=== PATIENT | female | born 1965 | race Hispanic/Latino ===

== ENCOUNTER 2020-12-14 06:48 | Day surgery (SDC) | payer OTHER ==
[~2020-12-14] VITALS: Ht 152.4 cm; Wt 64.1 kg
[~2020-12-14 06:48] MED LIST: ARTHRITIS PAIN100 GM TP; ATIVAN0.5 MG PO; B COMPLEX1 EACH PO; BUPROPION HCL150 M2 PO; MELATONIN1 MG PO; NASONEX17 GM NAS; NORVASC5 MG PO; PAROXETINE HCL20 MG PO; PULMICORT FLEX90 MCG INH; QUINAPRIL-HCTZ1 EAC2 PO; SIMVASTATIN20 MG PO; VALACYCLOVIR1000 MG PO; VENTOLIN HFA18 GM; ZYRTEC10 M3
--- NOTE | 2020-12-14 08:09 | NUR ---
12/14/20 0809 Hannah Bal 0803-PATIENT ARRIVED TO PACU ON 2L NC RR EVEN NONAROUSABLE TO VERBAL OR PAINFUL STIMULI. PATIENT LAYING LEFT LATERAL ABDOMEN SOFT. IVF INFUSING. CO2 LEVEL 35.
--- NOTE | 2020-12-14 09:36 | NUR ---
RETURNED TO DAY SURGERY TO SLEEP OFF MEDICATION
--- NOTE | 2020-12-15 06:46 | OR ---
[facility] [address], [place] [address] Signed DATE OF OPERATION: 12/14/2020 SURGEON: Maria De Jesus Kern MD PREOPERATIVE DIAGNOSES: 1. Screening. 2. Anogenital pruritus. 3. Hemorrhoid versus skin tag versus anal fissure. 4. Change in bowel habits after full hysterectomy in 2011. POSTOPERATIVE DIAGNOSES: 1. 4 mm polyp proximal right colon. 2. Minimal internal anal skin tags. PROCEDURE: Colonoscopy with hot biopsy. ESTIMATED BLOOD LOSS: None. INDICATIONS: Monica is a 55-year-old female, asked to see me for her initial colonoscopy. She has had many years ago she saw a stockroom inventory clerk. There was discussion about a skin tag versus a hemorrhoid. She is also concerned she may have had an anal fissure in the past. There was also discussion in the notes about anogenital pruritus for which she sees her host. She describes Preparation-H pads. Unfortunate that contains lidocaine which can lead to allergic dermatitis. She probably should discontinue that and switch over to something like a Balneol lotion, which contains mineral oil and lanolin. This is simple skin lotion for the anus and perineum. She also said after her open total hysterectomy in 2011, she has had a change in bowel habits with dry hard pellet-like stool. She told me to her knowledge no one in the family has a colon cancer or polyps including the first cousin. There is no inflammatory bowel disease in the family. She gave her recent stool study a month prior to the office visit, it was negative. In the office, I gave her a booklet on colonoscopy. We had discussed the test in detail. She understands there is risk including, but not limited to gas bloating, crampy abdominal pain, bleeding, perforation requiring surgery, and missed diagnosis. She also understands the need for IV conscious sedation. She had expressed understanding and wished to proceed. PROCEDURE NOTE: Electronically Signed By: MARIA DE JESUS KERN MD 12/15/20 0646 PATIENT NAME: HARLEEN GATES,MONICA HAWLEY OPERATIVE REPORT DATE OF : 63 REPORT #: [id number] PHYSICIAN: MARIA DE JESUS KERN MD PCP: EKATERINA ENGEL REPORT IS CONFIDENTIAL AND NOT TO BE RELEASED WITHOUT AUTHORIZATION [facility] [address], [place] [address] Signed Monica was taken into our endoscopy suite and placed in the left lateral decubitus position. She was given a total of 5 mg of Versed, 125 mcg of fentanyl to cover the case. A digital rectal exam was performed and this was unremarkable. She has good sphincter tone. No obvious anal sphincter. The adult colonoscope had been introduced and advanced around into the cecum under direct visualization of camera. It took a little extra sedation abdominal compression in order to advance the scope. Her prep was quite excellent. We could easily see the appendiceal orifice. We could also see the ileocecal valve. We took pictures throughout for photodocumentation. There may have been two polyps in her proximal right colon. The camera had turned around several times and we did find one polyp for sure and it was easily removed with a hot biopsy forceps. We never did see a 2nd polyp. It may be that they were the same, but it is not entirely clear. The scope was slowly withdrawn. The rest of the colon was completely unremarkable. There was no other polyps and no diverticulosis. The rectum was unremarkable. Upon retroflexion of scope, she does have a small internal anal skin tag. Really not much in the way of any hemorrhoids. After this, the gas was suctioned out and the colonoscope removed. Monica tolerated the procedure quite well. RECOMMENDATIONS: I will see Monica back in my office in 7 to 14 days to review her results. She might consider a followup colonoscopy in 12-18 months to make sure that proximal right colon is clear of all polyps. Maria De Jesus Kern MD ALB/MODL /[id number] cc: MD Ekaterina Villegas PA Copies: MARIA DE JESUS KERN MD Electronically Signed By: MARIA DE JESUS KERN MD 12/15/20 0646 PATIENT NAME: MONICA HUNG OPERATIVE REPORT DATE OF : 63 REPORT #: [id number] PHYSICIAN: MARIA DE JESUS KERN MD PCP: EKATERINA ENGEL REPORT IS CONFIDENTIAL AND NOT TO BE RELEASED WITHOUT AUTHORIZATION [facility] [address] [facility] [place], [place] [address] Signed EKATERINA ENGEL ~ Electronically Signed By: MARIA DE JESUS KERN MD 12/15/20 0646 PATIENT NAME: MONICA HUNG OPERATIVE REPORT DATE OF : 63 REPORT #: [id number] PHYSICIAN: MARIA DE JESUS KERN MD PCP: EKATERINA ENGEL REPORT IS CONFIDENTIAL AND NOT TO BE RELEASED WITHOUT AUTHORIZATION
--- NOTE | 2020-12-16 09:04 | PATH ---
[facility] [address] [place], [place] [address] Signed SPECIMEN(S): A ASCENDING/RIGHT PROXIMAL POLYP SPECIMEN SOURCE: A. ASCENDING/RIGHT PROXIMAL POLYP CLINICAL HISTORY: Screening colonoscopy. MICROSCOPIC DESCRIPTION: Histologic sections of all submitted blocks are examined by light microscopy. These findings, together with the gross examination, support the pathologic diagnosis. FINAL PATHOLOGIC DIAGNOSIS: Colon, proximal ascending/right, polyp, polypectomy: - Colonic mucosa with no histopathologic abnormality. - Negative for dysplasia or malignancy. COMMENT: Multiple additional deeper levels were examined. NAL:cml:C2NR GROSS DESCRIPTION: The specimen, labeled "AV, 1," and designated on the requisition "proximal ascending/right polypectomy," is received in formalin and consists of one fragment of pink-herman tissue (0.2 cm in greatest dimension). The specimen is submitted entirely in cassette (A1). AC (under the direct supervision of a pathologist The Gross Description was prepared using a voice recognition system. The report was reviewed for accuracy; however, sound-alike word errors, addition and/or deletions may occur. If there is any question about this report, please contact Client Services. PERFORMING LABORATORY: The technical component was performed by [facility], [address] [place] [id number] (Property Management Coordinator: Berenice Francis MD; CLIA# [id number]). [facility], [address] [address] (CLIA# [id number]). Diagnostician: Jessica Hermosillo MD Pathologist PATIENT NAME: ASHLY HUNG PATHOLOGY DATE OF : 63 REPORT #: [id number] PHYSICIAN: [facility] PCP: SANCHO ENGEL REPORT IS CONFIDENTIAL AND NOT TO BE RELEASED WITHOUT AUTHORIZATION [address] [address] Signed Electronically Signed 12/16/2020 Copies: ~ PATIENT NAME: ASHLY HUNG PATHOLOGY DATE OF : 63 REPORT #: [id number] PHYSICIAN: [facility] PATH[facility] PCP: SANCHO ENGEL REPORT IS CONFIDENTIAL AND NOT TO BE RELEASED WITHOUT AUTHORIZATION
== END 2020-12-14 10:25 | disposition home or self-care (01) ==
LOC: OPS 06:48
PROVIDERS: ATTEND Colon & Rectal Surgery
PROC: 0DBF8ZZ Excision of Right Large Intestine, Via Natural or Artificial Opening Endoscopic (ICD-10-PCS; principal; 2020-12-14 06:45)
DX: Z12.11 Encounter for screening for malignant neoplasm of colon (principal); K63.5 Polyp of colon; L29.3 Anogenital pruritus, unspecified; R19.4 Change in bowel habit; K64.4 Residual hemorrhoidal skin tags; J45.909 Unspecified asthma, uncomplicated; I10 Essential (primary) hypertension; E78.5 Hyperlipidemia, unspecified; Z90.710 Acquired absence of both cervix and uterus; Z88.5 Allergy status to narcotic agent; Z88.2 Allergy status to sulfonamides
CPT/HCPCS: 99153; G0500; J2250; J3010; J7121